=== PATIENT | female | born 1965 | race American Indian/Alaskan Native ===

== ENCOUNTER 2018-01-18 07:30 | Outpatient (CLI) | payer BC ==
--- NOTE | 2018-01-18 10:06 | Fluoroscopy Report ---
UPPER GI SERIES WITH AIR-CONTRAST HISTORY: Nausea with vomiting unspecified. FINDINGS: No comparison. 36 fluoroscopic images were captured during this exam. Acid Remover film of the abdomen demonstrates an unremarkable bowel gas pattern. The lap band ring appears slightly horizontal on the public relations representative image with the phi angle measuring approximately 20 degrees. Deglutition is normal. No evidence for aspiration. The esophagus is normal caliber and mucosal pattern throughout. Occasional esophageal spasm was witnessed during this exam. There is normal filling of the gastric cavity, duodenal bulb and duodenal sweep. No mucosal defect, mass or abnormal dilatation is identified. The location of the lap band device appears within normal limits on the overhead images with no evidence of slippage, obstruction or erosion. IMPRESSION: Occasional esophageal spasm. Otherwise, unremarkable exam. No convincing evidence for lap band slippage or erosion.
== END 2018-01-18 07:31 | disposition home or self-care (01) ==
LOC: FLUORO 07:30
PROVIDERS: ATTEND Specialist
DX: K22.4 Dyskinesia of esophagus (principal)
CPT/HCPCS: 74247